=== PATIENT | female | born 1975 | race Caucasian/White ===

== ENCOUNTER 2021-05-11 06:13 | Observation (INO) ==
[2021-04-29 10:44] LABS: Appearance Urine Clear (Clear); Bilirubin Urine Negative (Negative); Blood Urine Negative (Negative); Color Urine Yellow; Glucose Urine UA Negative (Negative); Ketones Urine Negative (Negative); Leukocyte Esterase Urine Negative (Negative); Nitrite Urine Negative (Negative); Protein Urine Negative (Negative); Specific Gravity Urine 1.009 (1.000-1.030); Urobilinogen Urine Negative (Negative); pH Urine 6.5 (4.5-7.5)
[2021-04-29 10:57] LABS: Basophils # (auto) 0.03 K/uL (0-0.2); Basophils % (auto) 0.4 %; Eosinophils % (auto) 1.4 %; Hematocrit (blood only) 41.1 % (37-47); Hemoglobin 13.6 g/dL (12.0-16.0); Immature Granulocytes # (auto) 0.01 K/uL (0.00-0.02); Immature Granulocytes % (auto) 0.1 %; Lymphocytes # (auto) 1.37 K/uL (1.2-3.4); Lymphocytes % (auto) 19.3 %; Mean Corpuscular Hemoglobin 31.7 pg (25-34); Mean Corpuscular Hgb Conc 33.1 g/dL (32-36); Mean Corpuscular Volume 95.8 fL (80-100); Mean Platelet Volume 11.2 fL (7.4-10.4); Monocytes # (auto) 0.52 K/uL (0.11-0.59); Monocytes % (auto) 7.3 %; Neutrophils # (auto) 5.07 K/uL (1.4-6.5); Neutrophils % (auto) 71.5 %; Platelet Count 344 K/uL (130-400); Prothrombin Time 9.8 Seconds (9.0-12.0); RDW Coefficient of Variation 12.8 % (11.5-14.5); Red Blood Count 4.29 M/uL (4.2-5.4)
[2021-04-29 11:22] LABS: BUN Creatinine Ratio 19.3 (10-20); Blood Urea Nitrogen 14 mg/dl (7-18); Calcium 8.5 mg/dl (8.5-10.1); Carbon Dioxide 26 mmol/L (21-32); Chloride 105 mmol/L (98-107); Est GFR (African American) 116.9 ml/min; Est GFR (Non-African American) 100.9 ml/min; Glucose 88 mg/dl (70-99); Potassium 4.6 mmol/L (3.5-5.1); Sodium 136 mmol/L (136-145)
--- NOTE | 2021-05-05 10:50 | Anesthesiology Consultation ---
Date of Service May 05, 2021 Assessment & Plan (1) Encounter for pre-operative examination: - COVID screening: Per assessment on 05/05/2021: Travel screen negative, no known COVID-19 positive contacts or current COVID-19 related symptoms. Patient reports COVID vaccination. Surgeon arranging preop COVID testing, scheduled 05/07/2021. Awaiting results. Chart Review Chart Review: Acceptable Risk for Surgery and Patient NOT seen in Pre Admission Testing History Surgery Operation Date: 05/11/21 07:45 Proposed Procedures p C6-C7 Anterior Cervical Discectomy Fusion, C4-C7 Fusion, C5 Corpectomy, Spinal Cord Monitoring - Isauro Fuentes, Height/Weight Height: 5 ft 3.5 in Weight: 58.967 kg Allergies Allergy/AdvReac Type Severity Reaction Status Date / Time nabumetone Allergy Intermediate HIVES Unverified 05/05/21 10:09 Medications Home Medications Medication Instructions Recorded Confirmed Last Taken acyclovir 200 mg capsule 200 mg PO QPM 05/05/21 05/05/21 Unknown doxepin 10 mg capsule 10 mg PO HS 05/05/21 05/05/21 Unknown gabapentin 600 mg tablet 600 mg PO TID 05/05/21 05/05/21 Unknown ibuprofen 200 mg capsule 600 - 800 mg PO Q6H PRN 05/05/21 05/05/21 Unknown Past Medical History Medical History Anxiety Degenerative disc disease Hx of bronchitis "USUALLY GETS ONE TIME YEARLY" Insomnia Migraine Osteoarthritis Past Family History Family History Other No family history of adverse response to anesthesia Past Surgical History Surgical History Flank hernia REPAIR OF HERNIA IN LOWER BACK REGION History of appendectomy History of bilateral tubal ligation History of section X 2 History of colonoscopy History of endometrial ablation History of herniorrhaphy A CHILD Lipoma of back REMOVED [place] teeth removed Social History Smoking Status: Current some day smoker tobacco type: cigarettes Smoking cigarettes per day: SMOKES 5 CIG IN A WEEK Do You Dip or Chew Tobacco: No Hx Alcohol Use: Yes Alcohol type: wine alcohol intake frequency: a few times a month substance use type: does not use Testing Laboratory Results 04/29/21 10:11 04/29/21 10:11 PT 9.8 Seconds (9.0-12.0) 04/29/21 10:11 INR 1.0 (0.9-1.1) 04/29/21 10:11 Urine Color Yellow 04/29/21 10:11 Urine Appearance Clear (Clear) 04/29/21 10:11 Urine pH 6.5 (4.5-7.5) 04/29/21 10:11 Ur Specific [place] 1.009 (1.000-1.030) 04/29/21 10:11 Urine Protein Negative (Negative) 04/29/21 10:11 Urine Glucose (UA) Negative (Negative) 04/29/21 10:11 Urine Ketones Negative (Negative) 04/29/21 10:11 Urine Nitrite Negative (Negative) 04/29/21 10:11 Ur Leukocyte Esterase Negative (Negative) 04/29/21 10:11 Blood Type O Positive 04/29/21 10:11 Antibody Screen NEGATIVE 04/29/21 10:11 04/29/21 10:11 Urine Culture - Final Urine,Clean Catch Gram positive bacilli Electrocardiogram Date: 04/29/21 Normal sinus rhythm at 69 bpm. Reviewed and dictated by Dr. He Kasper. Chest X-Ray Date: 04/29/21 No acute cardiopulmonary findings.
--- NOTE | 2021-05-10 11:43 | History & Physical Report ---
Date of Service May 10, 2021 Assessment & Plan (1) Myelopathy concurrent with and due to spinal stenosis of cervical region: Plan: Assessment cervical myeloradiculopathy. Plan at this time she feels that the course of nonoperative care has progressive neurologic deficit and requires urgent surgery. Surgery would require C6-C7 anterior cervical discectomy and fusion, C4-C7 fusion, C5 corpectomy History of Present Illness Chief Complaint: Neck and bilateral arm pain with weakness Primary Care Provider: Blanca Holt PA-C This is a 45-year-old female presents with marked decline in status including cervicalgia with bilateral cervical radiculopathy coordination deficits and weakness. After failing course of nonoperative care she is here for surgical invention. Allergies Allergy/AdvReac Type Severity Reaction Status Date / Time nabumetone Allergy Intermediate HIVES Unverified 05/05/21 10:09 Home Medications Medication Instructions Recorded Confirmed Type acyclovir 200 mg capsule 200 mg PO QPM 05/05/21 05/05/21 History doxepin 10 mg capsule 10 mg PO HS 05/05/21 05/05/21 History gabapentin 600 mg tablet 600 mg PO TID 05/05/21 05/05/21 History ibuprofen 200 mg capsule 600 - 800 mg PO Q6H PRN 05/05/21 05/05/21 History Past Med/Surg History Medical History Anxiety Degenerative disc disease Hx of bronchitis "USUALLY GETS ONE TIME YEARLY" Insomnia Migraine Osteoarthritis Surgical History Flank hernia REPAIR OF HERNIA IN LOWER BACK REGION History of appendectomy History of bilateral tubal ligation History of section X 2 History of colonoscopy History of endometrial ablation History of herniorrhaphy A CHILD Lipoma of back REMOVED [place] teeth removed Family History Other No family history of adverse response to anesthesia Social History Smoking Status: Current some day smoker Cigarettes Per Day: SMOKES 5 CIG IN A WEEK; Second Hand Exposure: No; Hx Alcohol Use: Yes Alcohol type: wine Preferred Language: Occitan Clerical Transcriber Required: No Beliefs That Will Affect Care: None Current Living Situation: Family Feels Safe at Home: Yes Assistive Devices: Glasses Physical Exam Physical Exam: Patient is alert and oriented Heart regular rhythm Lungs clear to auscultation Motor exam reveals bilateral strength deficits to the upper extremities with Spurling sign to the left.
[~2021-05-11 06:13] MED LIST: ACETAMINOPHEN 500 MG TAB PO SCH; CeleBREX 200 MG CAP PO SCH; GABAPENTIN 900 MG DOSE PO SCH; LR 15ML/HR IV SCH; ceFAZolin 1000MG 1,000 MG/7.5 ML SYR IV SCH
[2021-05-11] MEDS ORDERED: MIDAZOLAM HCL 1 MG/ML 2ML VIAL ONE (06:53)
[2021-05-11] MEDS ORDERED: fentaNYL citrate 100 MCG/2 ML VIAL ONE ×3 (06:53→09:41)
[2021-05-11] MEDS ORDERED: ATROPINE SULFATE 0.1 MG/ML 10ML SYR IV PRN (07:16)
[2021-05-11] MEDS ORDERED: ONDANSETRON INJ 2 MG/ML 2 ML VIAL IV PRN ×2 (07:16→11:15)
[2021-05-11] MEDS ORDERED: ePHEDrine sulfate 50 MG/ML AMP IV PRN (07:16)
--- NOTE | 2021-05-11 07:33 | History & Physical Bridge Note ---
Date of Service May 11, 2021 History & Physical Bridge Note I have examined the patient, reviewed the History & Physical and in the interval since the performance of the History & Physical I have noted the following changes of clinical significance: no changes noted
[2021-05-11] MEDS ORDERED: FLOSEAL HEMOSTATIC MATRIX 10ML TOP ONE (08:17)
[2021-05-11] MEDS ORDERED: ONDANSETRON INJ 2 MG/ML 2 ML VIAL ONE (09:31)
[2021-05-11] MEDS ORDERED: PROPOFOL IV EMULSION 10 MG/ML 20 ML VIAL IV ONE (09:31)
[2021-05-11] MEDS ORDERED: LIDOCAINE 2% 2 ML VIAL/AMP(20MG/ML) INFIL ONE (09:31)
[2021-05-11] MEDS ORDERED: GLYCOPYRROLATE 0.2 MG/ML VIAL ONE (09:31)
[2021-05-11] MEDS ORDERED: NEOSTIGMINE METHYLSULFATE 1 MG/ML 10ML VIAL ONE (09:31)
[2021-05-11] MEDS ORDERED: ROCURONIUM BROMIDE 10 MG/ML 5 ML VIAL IV ONE (09:31)
[2021-05-11] MEDS ORDERED: DEXAMETHASONE SOD INJ 4 MG/ML VIAL ONE (09:31)
--- NOTE | 2021-05-11 09:35 | Operative Report ---
Post Operative Report Pre & Post Diagnosis Operation Date: 05/11/21 07:45 Pre-Op Diagnosis: Cervical spinal stenosis with myeloradiculopathy Post-Op Diagnosis: Same I identified the patient and participated in the time-out.: Yes Procedure Operation Date: 05/11/21 07:45 Actual Procedures #1 anterior cervical corpectomy with bilateral foraminotomies C5. #2 anterior cervical discectomy with bilateral foraminotomies C6-C7. #3 anterior cervical arthrodesis C4-C6 and C6-C7. #4 placement of 21 mm peek cage filled with locally harvested morselized autograft and I factor C4-C6 and an 8 mm peek cage filled with locally harvested morselized autograft and I factor at C6-C7. #5 placement of the graft with morselized autograft and I factor in the interbody cages. #6 application of ledesma plate and screws from C4-C7. Surgeon Isauro Fuentes, DO Risk Compliance Analyst Mavis Wyatt Estimated Blood Loss 10 Findings Consistent with Post-Op Diagnosis Specimens None Indications This is a 45-year-old female presents with above-mentioned diagnosis and course of nonoperative care she is here for surgical invention. Description of Procedure Patient was met with identified informed consent obtained. Patient was then taken to the operative suite underwent a patient placed in supine position inj ectable head Brandt head waitress. All bony prominences well-padded eyes inspected to ensure no external pressure placed upon the. This point the anterior cervical spine was prepped and draped in a sterile fashion. The assistance of fluoroscopy identified the C5-6 to space and incision was made along the right anterior aspect of the cervical spine overlying this region. Blunt dissection with the assistance of bipolar electrocautery was then performed down to and exposing the anterior cervical spine from C4-C7. A self- retaining retractor was placed. Then performed a complete discectomy of C4-5 out to the uncovertebral joints bilaterally followed by C5-C6. [place] distraction pins were then placed in C4 and C6 to distract across the C5 vertebral body. Complete corpectomy was then performed including removal of all posterior annular fibers longitudinal ligament bilateral foraminotomies performed. Endplates burred to subcortical being bone and a 21 mm peek cage filled with locally harvested morselized autograft and I factor tapped position. Distracting apparatus was removed and I proceeded to C6-C7. Again complete discectomy performed out to the uncovertebral joints bilaterally. [place] distracting pins again utilized. Removed all posterior annular fibers longitudinal ligament bilateral foraminotomies performed to address all neural compression. Endplates were then burred to subcortically bone and an 8 mm peek cage filled with I factor and locally harvested morselized allograft was tapped in position. Distracting apparatus was removed and a 5 complete and screws ap plied with the assistance of fluoroscopy. The incision was then copiously irrigated explored to ensure no damage to surrounding structures or remaining bleeding. 10 round RAMONA drain inserted. The incision was then closed with 2 Vicryl in a fashion of 4 Monocryl for final skin closure. Steri-Strip sterile dressings placed. Patient waken taken to PACU stable condition. Please note spinal cord monitoring was utilized at the procedure no changes noted. Lastly Mavis Wyatt was present at the entire procedure and all the patient positioning complex portions of the surgery and vascular closure. I attest to the content of the Intraoperative Record and any orders documented therein. Any exceptions are noted below.
[2021-05-11] MEDS: fentaNYL citrate 100 MCG/2 ML VIAL IV PRN ×3 (10:04→10:22)
--- NOTE | 2021-05-11 10:46 | Fluoroscopy Report ---
FL cervical 2-3V CLINICAL HISTORY: ACDF C4-C7 CORPECTOMY C5 COMPARISON STUDY: None. FLUOROSCOPY TIME: 7 seconds. FINDINGS: 2 fluoroscopic spot images of the cervical spine demonstrate anterior cervical discectomy a nd fusion from C4 through C7 with C5 corpectomy and bone graft. The hardware appears intact. Endotrac heal tube appears in good position. IMPRESSION: Fluoroscopy provided for C4-C7 ACDF. ACT 112: Negative or not required by law. Electronically signed by: Pablo Hoffman M.D. 05/11/2021 10:45 AM
--- NOTE | 2021-05-11 10:49 | Anesthesiology Progress Note ---
Date of Service May 11, 2021 Anesthesia Post Procedure Vital Signs Vital Signs: Temp Pulse Pulse Resp BP BP Pulse Ox 05/11/21 10:45 86 18 125/72 100 05/11/21 10:35 71 13 133/64 99 05/11/21 10:25 83 12 114/67 99 05/11/21 10:15 73 12 116/63 98 05/11/21 10:05 67 20 122/71 100 05/11/21 09:55 73 14 121/70 100 05/11/21 09:46 96.8 F L 71 17 107/55 L 96 05/11/21 06:49 98.2 F 86 18 113/63 97 Pain Intensity Neck: Pain Intensity: 3 Transfer of Care Handoff Completed per policy Notes Mental Status: alert / awake / arousable and participated in evaluation Patient Amnestic to Procedure: Yes Nausea / Vomiting: adequately controlled Pain: adequately controlled Airway Patency, RR, SpO2: stable & adequate BP & HR: stable & adequate Hydration State: stable & adequate Anesthetic Complications: no major complications apparent and Pt Satisfied with anesthetic care
[2021-05-11] MEDS ORDERED: LORazepam 0.5 MG/1 ML VIAL IV PRN (11:15)
[2021-05-11] MEDS ORDERED: hydrOXYzine HCl 25 MG TAB PO PRN (11:15)
[2021-05-11] MEDS ORDERED: DO NOT ADMINISTER PNEUMOCOCCAL VACCINE PRN (11:15)
[2021-05-11] MEDS ORDERED: MAGNESIUM HYDROXIDE SUSP 30 ML UDC PO PRN (11:15)
[2021-05-11] MEDS ORDERED: RACEPINEPHRINE 2.25% NEBU SOLN 0.5 ML VIAL INH PRN (11:15)
[2021-05-11] MEDS ORDERED: ALUMINUM/MAGNESIUM SUSP 30 ML UDC PO PRN (11:15)
[2021-05-11] MEDS ORDERED: METOCLOPRAMIDE HCL INJ 5 MG/ML 2 ML VIAL IV PRN (11:15)
[2021-05-11] MEDS ORDERED: bisacodyL 10 MG SUPP PR PRN (11:15)
[2021-05-11] MEDS ORDERED: traMADol HCL 50 MG TABLET PO PRN (11:15)
[2021-05-11] MEDS ORDERED: NALOXONE HCL 0.4 MG/1 ML VIAL/CARP IV PRN (11:15)
[2021-05-11] MEDS ORDERED: FAMOTIDINE 20 MG TAB PO PRN (11:15)
[2021-05-11] MEDS ORDERED: DO NOT ADMINISTER FLU VACCINE PRN (11:15)
[2021-05-11] MEDS ORDERED: diphenhydrAMINE Capsule 25 MG CAP PO PRN (11:15)
[2021-05-11] MEDS ORDERED: PROMETHAZINE HCL 12.5 MG in SODIUM CHLORIDE 0.9% 50 ML IV PRN (11:15)
[2021-05-11] MEDS ORDERED: HYDROmorphone INJ 0.5 MG/0.5 ML SYR IV PRN (11:15)
[2021-05-11] MEDS ORDERED: ACETAMINOPHEN 1,000 MG/100 ML VIAL IV PRN (11:15)
[2021-05-11] MEDS ORDERED: SOD PHOSPHATE/SOD BIPHOSPHATE ENEMA 132 ML BTL PR PRN (11:15)
[2021-05-11] MEDS ORDERED: dexAMETHasone 8 MG in SYRINGE 0 ML IV PRN (11:15)
[2021-05-11] MEDS ORDERED: ONDANSETRON 4 MG OD TAB PO PRN (11:15)
[2021-05-11] MEDS ORDERED: ACETAMINOPHEN 500 MG TAB PO PRN (11:15)
[2021-05-11] MEDS: LACTATED RINGER'S 1,000 ML IV SCH ×2 (11:53→21:17)
[2021-05-11] MEDS: HYDROmorphone INJ 1 MG/ML SYRINGE IV PRN ×3 (11:53→23:25)
[2021-05-11] MEDS: GABAPENTIN 600 MG TAB PO SCH ×2 (13:52→20:16)
[2021-05-11] MEDS: oxyCODONE HCL IR 5 MG TAB (IMMEDIATE RELEASE) PO PRN ×2 (13:52→18:12)
[2021-05-11] MEDS: ceFAZolin 1000MG 1,000 MG/7.5 ML SYR IV SCH (18:12)
[2021-05-11] MEDS: LORazepam 0.5 MG TAB PO PRN (18:18)
[2021-05-11] MEDS ORDERED: DOXEPIN HCL 10 MG CAPSULE PO SCH (21:00)
[2021-05-11] MEDS ORDERED: DOCUSATE SODIUM/SENNA 50/8.6MG TAB PO SCH (21:00)
[2021-05-12] MEDS: ceFAZolin 1000MG 1,000 MG/7.5 ML SYR IV SCH (02:13)
[2021-05-12] MEDS: oxyCODONE HCL IR 5 MG TAB (IMMEDIATE RELEASE) PO PRN ×2 (02:21→08:57)
[2021-05-12] MEDS: LORazepam 0.5 MG TAB PO PRN (02:22)
[2021-05-12] MEDS ORDERED: POLYETHYLENE (MIRALAX) 17 GM PACK PO SCH (06:00)
[2021-05-12] MEDS: HYDROmorphone INJ 1 MG/ML SYRINGE IV PRN (06:30)
--- NOTE | 2021-05-12 08:14 | Discharge Summary ---
Date of Service May 12, 2021 Admission HPI Per Admitting Provider This is a 45-year-old female presents with marked decline in status including cervicalgia with bilateral cervical radiculopathy coordination deficits and weakness. After failing course of nonoperative care she is here for surgical invention. Principal Diagnosis Cervical myeloradiculopathy Discharge Data Allergies Allergy/AdvReac Type Severity Reaction Status Date / Time nabumetone Allergy Intermediate HIVES Verified 05/11/21 06:30 Procedures Performed Operation Date: 05/11/21 07:45 Actual Procedures p C6-C7 Anterior Cervical Discectomy Fusion, C4-C7 Fusion, C5 Corpectomy, Spinal Cord Monitoring(Not Applicable) - Isauro Fuentes DO Ordered Studies 05/11/21 07:45 [place] cervical 2-3V Routine Hospital Course (1) Myelopathy concurrent with and due to spinal stenosis of cervical region: Patient went anterior cervical decompression fusion trial as well as taken orthopedic for postoperative. Postop day 1 she was swallowing well no hoarseness. Arm symptoms markedly improved. Pain well controlled. RAMONA drain decreasing appropriately. Subsequent discharge home. Discharge orders instructions from the chart for further review. Total Time Total Time Spent Total Time Spent (In Minutes): 20 minutes Discharge Plan Discharge Items Patient Disposition: Home - Self-Care Reason For Visit: Spinal Stenosis, Cervical Region Discharge Diagnosis: Cervical spine gnosis with myeloradiculopathy Activity: As commented below Non-emergency contact: Primary Care Provider Call non-emergency contact if: you have any medication questions Follow-up/Referrals: Blanca Holt PA-C [Primary Care Provider] - Diet: Regular Addtl Attending Provider Instructions: ACTIVITY RECOMMENDATIONS: SELF CARE INSTRUCTIONS AFTER CERVICAL FUSIONS 1. No smoking. Smoking drastically decreases the chance of a solid fusion. 2. No bending, lifting more than 5 pounds, or twisting (roll like a log when turning in bed). 3. You may shower 3 days after surgery. Thoroughly dry wound. Do not soak in the tub. 4. Cervical collar: Must be worn at all times including sleeping. You may remove the brace only to bath, eat and if you are sitting in a recliner. 5. Please walk as much as you can for exercise. Gradually increase the distance that you walk as your endurance increases. SPECIAL CARE INSTRUCTIONS: VERY IMPORTANT TO READ AND REVIEW A. Do not take any anti-inflammatory medications (i.e. Indocin, Advil, Aspirin, Naprosyn, Aleve, Motrin, etc.) as these may inhibit the chance of a solid fusion. Tylenol is okay to take. B. Your surgical incision has been closed with a cosmetic suture under the skin that will dissolve in about 6 weeks. In 14 days, you can use a pair of clean scissors and cut the suture that is left outside of the skin at the ends of your incision. C. Complications are uncommon, but please contact us if you have any signs or symptoms of: 1. wound infection (fever higher than 102.5 degrees F, redness, separation of wound, drainage, or increasing pain from the incision) 2. blood clots in legs (pain, swelling, redness and warmth in legs) 3. urinary tract infection (fever higher than 102.5 degrees, burning upon urination or increased frequency of urination) 4. nerve problems (inability to walk on your toes or heels, numbness, loss of bowel or bladder control) 5. any other symptoms that concern you. D. Please call the office at if you have any concerns or questions about your operation or recovery. MANAGING PAIN AFTER SPINAL SURGERY 1. Narcotic medication is intended for short-term use and will be provided for surgical pain. Surgical pain usually lasts for a period of 4-6 weeks. Narcotic medication includes Percocet, Vicodin, Darvocet, Tylenol #3 or Lortab. 2. Longer-term pain is more appropriately treated with non-narcotic medication such as Tylenol ES. 3. Muscle spasm is not appropriately treated with narcotics. Muscle relaxers such as Soma, Flexeril or Skelaxin can be used along with Tylenol ES. 4. Remember that we all live with some "aches and pains". This is not unusual or uncommon after an injury or as we get older. 5. We will provide appropriate medication within the normal guidelines of their prescribed use. We will also be very cautious and aware of potential abuse and extended duration of patients' medication needs. 6. Please allow 2-3 days to process refills. Prescriptions will not be mailed but must be picked up at the office. FOLLOW UP VISIT: Keep your scheduled follow-up appointment. Any questions, please call the office at . Pending Studies at Discharge: No Stand-Alone Forms: [facility], Smoking Cessation Medications and DC Order Prescriptions: New oxycodone 5 mg tablet 5 mg PO Q6H PRN (Reason: pain, severe) Qty: 20 RF: 0 tramadol 50 mg tablet 50 mg PO Q6H PRN (Reason: pain, moderate) Qty: 20 RF: 0 Continued gabapentin 600 mg Tablet 600 mg PO TID RF: 0 doxepin 10 mg Capsule 10 mg PO HS RF: 0 acyclovir 200 mg Capsule 200 mg PO QPM RF: 0 Discontinued ibuprofen 200 mg Capsule 600 - 800 mg PO Q6H PRN (Reason: Pain) RF: 0 Discharge Orders: Discharge Order (Routine); Ordered 05/12/21 Ordered By: Isauro Fuentes Admission Data Admit Date/Time: 05/11/21 09:39 Attending Provider: Isauro Fuentes Admit Provider: Isauro Fuentes Primary Care Provider: Blanca Holt
[2021-05-12] MEDS: GABAPENTIN 600 MG TAB PO SCH (08:58)
[2021-05-12] MEDS ORDERED: dexAMETHasone 6 MG in SYRINGE 0 ML IV SCH (09:00)
== END 2021-05-12 11:40 | disposition home or self-care (01) ==
LOC: ASU 06:13 → 3E 09:39 → INTOOBSV 09:39